=== PATIENT | female | born 1970 | race Caucasian/White ===

== ENCOUNTER 2024-01-20 17:45 | Emergency (ER) | payer OTHER ==
[~2024-01-20] VITALS: Ht 177.8 cm; Wt 75.0 kg
[~2024-01-20 17:45] MED LIST: ACYCLOVIR200 MG PO; ALBUTEROL0.09 MG/A4 IH; BACLOFEN10 MG PO; CELEXA40 MG PO; COUMADIN 77.5 MG/TAB PO; DEPAKOTE500 M1 PO; DILANTIN; DILANTIN PO; FLEXERIL10 MG PO; GABAPENTIN300 M1 PO; KEPPRA750 MG PO; KLONOPIN 1MG1 MG PO; LASIX 40MG TABL40 MG PO; LEVAQUIN 5500 MG/TA1 PO; LEXAPRO10 MG PO; LORTAB 10/500 51 TAB PO; MULTIVITAMIN FO1 CAP PO; NEURONTIN300 MG/CAP PO; NORVASC2.5 MG PO; OXYCONTIN20 MG PO; PERCOCET 325 MG1 TAB PO; PERCOCET 5/321 UDTAB PO; PREMARIN 0.60.625 M1 PO; REMERON30 MG PO; RESTORIL30 MG PO; RITALIN LA10 MG PO; ROBAXIN-750750 MG PO; SOMA350 MG PO; SPIRIVA HANDIH18 MCG IH; TRAZODO50 MG PO; VALIUM 5MG T5 MG/TAB PO; VITAMIN D31000 I1 PO; XANAX1 MG PO; ZOCOR 20MG20 MG PO; ZOFRAN 4MG T4 MG/TAB PO
[2024-01-20 17:56] VITALS: TEMP 98.3
[2024-01-20] MEDS ORDERED: NS 1,000 ML IV ONE (18:30)
[2024-01-20] MEDS ORDERED: Ondansetron 4 MG/2 ML VIAL IV ONE (18:30)
[2024-01-20 18:38] LABS: BASO # 0.1 K/mm3 (0.0-0.2); BASO % 0.6 % (0.0-2.0); EOS # 0.1 K/mm3 (0.0-0.7); EOS % 0.6 % (0.0-4.0); GRAN # 6.8 K/mm3 (1.4-6.5); GRAN % 68.6 % (42.2-75.2); HEMATOCRIT 41.2 % (37.0-47.0); HEMOGLOBIN 14.5 g/dl (12.5-16.0); LYMPH # 2.3 K/mm3 (1.2-3.4); LYMPH % 23.6 % (20.0-51.0); MEAN CELL VOLUME 88 fl (80.0-100.0); MEAN CORPUSCULAR HEMOGLOBIN 31 pg (27-31); MEAN CORPUSCULAR HGB CONC 35 g/dl (33.0-37.0); MEAN PLATELET VOLUME 9.3 fl (7.4-10.4); MONO # 0.6 K/mm3 (0.1-0.6); MONO % 6.3 % (1.7-9.3); PLATELET COUNT 297 K/mm3 (130-400); RED BLOOD COUNT 4.68 M/mm3 (4.10-5.30); REDCELL DISTRIBUTION WIDTH-CV 11.8 % (11.5-14.5)
[2024-01-20 18:57] LABS: ALANINE AMINOTRANSFERASE 10 U/L (0-55); ALBUMIN 4.4 g/dL (3.5-5.0); ALKALINE PHOSPHATASE 57 U/L (40-150); ANION GAP 13 mmol/L (7-16); AST,SGOT 16 U/L (5-34); BILIRUBIN,TOTAL 0.4 mg/dL (0.2-1.2); BLOOD UREA NITROGEN 19 mg/dL (10-20); CALCIUM 9.7 mg/dL (8.4-10.2); CHLORIDE 107 mEq/L (98-107); CREATININE, serum 0.91 mg/dL (0.57-1.11); GLUCOSE 93 mg/dL (70-99); POTASSIUM 3.7 mEq/L (3.5-4.5); SODIUM 138 mEq/L (136-145)
[2024-01-20 19:05] LABS: TROPONIN-I < 0.010 ng/mL (0.00-0.033)
[2024-01-20 19:24] VITALS: BP 150/97; PULSE 74
== END 2024-01-20 19:36 | disposition home or self-care (01) ==
LOC: COL.ER 17:45
PROVIDERS: Physician Assistant
DX: R00.0 Tachycardia, unspecified (principal); T43.615A Adverse effect of caffeine, initial encounter
CPT/HCPCS: J2405; J7030